=== PATIENT | male | born 1950 | race African-American/Black ===

== ENCOUNTER 2022-10-14 07:47 | Day surgery (SDC) | payer OTHER ==
[2022-10-12 12:22] VITALS: BMI 26.4
[2022-10-14 10:11] VITALS: TEMP 98
[2022-10-14 10:15] VITALS: PULSE 85; RESP 16
[2022-10-14 10:16] VITALS: BP 142/79
== END 2022-10-14 10:38 | disposition home or self-care (01) ==
LOC: FASU-ENDO 07:47
PROVIDERS: ATTEND Internal Medicine Gastroenterology
PROC: 0DJD8ZZ Inspection of Lower Intestinal Tract, Via Natural or Artificial Opening Endoscopic (ICD-10-PCS; principal; 2022-10-14 09:36)
DX: Z12.11 Encounter for screening for malignant neoplasm of colon (principal); Z86.010 Personal history of colon polyps
CPT/HCPCS: 82962